=== PATIENT | female | born 1945 | race Caucasian/White ===

== ENCOUNTER 2017-05-14 17:06 | Emergency (ER) | payer MEDICARE ==
[~2017-05-14] VITALS: Ht 160 cm; Wt 70.0 kg
[~2017-05-14 17:06] MED LIST: BENAZEPRIL5 M3 PO; LIPITOR40 M1 PO; MEDDOSEPAK PO; PRILOSEC40 MG PO; TRAZODONE50 MG PO; VENLAFAXINE HCL75 M1 PO; ZETIA10 MG PO; ZITHROMAX250 MG PO
[2017-05-14] MEDS ORDERED: FARXIGA10 MG PO (21:31)
[2017-05-14] MEDS ORDERED: TRULICITY1.5 MG/0.5 SC (21:34)
[2017-05-14] MEDS ORDERED: ZOFRAN ODT4 MG PO (21:39)
[2017-05-14] MEDS ORDERED: ULTRAM50 M1 PO (21:39)
[2017-05-14 21:52] VITALS: BP 150/72
== END 2017-05-14 21:54 | disposition home or self-care (01) ==
LOC: ED 17:06
DX: R10.11 Right upper quadrant pain (principal); R11.0 Nausea; K80.20 Calculus of gallbladder without cholecystitis without obstruction; R10.9 Unspecified abdominal pain; I10 Essential (primary) hypertension; R63.4 Abnormal weight loss; E78.5 Hyperlipidemia, unspecified

== ENCOUNTER → 2018-07-06 | Outpatient (REF) | payer MEDICARE ==
[~2018-07-06] MED LIST changes: +FARXIGA10 MG PO; +TRULICITY1.5 MG/0.5 SC; +ULTRAM50 M1 PO; +ZOFRAN ODT4 MG PO
[2018-07-06 08:50] LABS: ALBUMIN 4.1 g/dL (3.2-5.0); ALKALINE PHOSPHATASE 77 u/l (38-126); ANION GAP 13 (6-22 (CALC)); BILIRUBIN, TOTAL 0.8 mg/dL (0.0-1.4); BUN 16 mg/dL (8-23); BUN/CREATININE RATIO 22 (12-20 (CALC)); CALCULATED LDLCHOLESTEROL 63 mg/dL (62-129 (CALC)); CARBON DIOXIDE 29 mmol/l (22-30); CHLORIDE 102 mmol/l (95-108); CHOLESTEROL HDL RATIO 2.1 (<4.4 (CALC)); CREATININE 0.7 mg/dL (0.5-1.0); GFR > 60 ML/MIN (>=60 (CALC)); GFR FOR AFR.AMER. > 60 ML/MIN (>=60 (CALC)); HDL CHOLESTEROL 72 mg/dL (>=40); POTASSIUM 4.1 mmol/l (3.5-5.1); SGOT/AST 27 u/l (9-36); SODIUM 140 mmol/l (137-146); TOTAL CHOLESTEROL 151 mg/dl (0-199); TOTAL PROTEIN 6.7 g/dL (6.3-8.2); TOTAL TRIGLYCERIDES 78 mg/dl (30-149); VLDL CHOLESTROL 16 mg/dl (0-48 (CALC))
[2018-07-06 09:04] LABS: HEMATOCRIT 40.5 % (37.0-47.0); HEMOGLOBIN 13.4 g/dl (12.0-16.0); IMMATURE GRANULOCYTES 0.2 % (0.0-5.0); MEAN CELL VOLUME 95.1 fL CALC (80.0-100.0); MEAN CORPUSCULAR HGB 31.5 pG CALC (26.0-32.0); MEAN CORPUSCULAR HGB CONC 33.1 g/L CALC (32.0-36.0); NEUT# 2.97 thou/uL (2.00-7.15); RED BLOOD COUNT 4.26 mill/uL (4.20-5.60); RED CELL DISTRI WIDTH 12.3 % (11.5-15.5)
[2018-07-06 09:17] LABS: TSH, 3RD GENERATION 1.84 uIU/mL (0.47 - 4.68)
== END | disposition home or self-care (01) ==
LOC: LAB 08:00
PROVIDERS: ATTEND Family Medicine
DX: E11.9 Type 2 diabetes mellitus without complications (principal); E53.8 Deficiency of other specified B group vitamins; E55.9 Vitamin D deficiency, unspecified; E78.5 Hyperlipidemia, unspecified; I10 Essential (primary) hypertension

== ENCOUNTER 2021-04-04 19:38 | Emergency (ER) | payer MEDICARE ==
[~2021-04-04] VITALS: Ht 160 cm; Wt 59.0 kg
[2021-04-04 20:31] LABS: URINE BILIRUBIN - DIPSTICK NEGATIVE (NEGATIVE); URINE BLOOD DIPSTICK SMALL (NEGATIVE); URINE COLOR YELLOW; URINE GLUCOSE - DIPSTICK NEGATIVE (NEGATIVE); URINE KETONE TRACE mg/dL (NEGATIVE); URINE PROTEIN - DIPSTICK TRACE mg/dL (NEG-TRACE); URINE SPECIFIC GRAVITY >=1.030; URINE UROBILINOGEN - DIPSTICK 0.2 E.U./dL (0.2)
[2021-04-04 20:32] LABS: URINE LEUK ESTERASE SMALL (NEGATIVE); URINE NITRITE - DIPSTICK POSITIVE (Negative)
[2021-04-04 20:40] LABS: URINE BACTERIA MODERATE hpf; URINE SQUAMOUS EPITHELIAL CELL FEW EPI/hpf (0-FEW); URINE WBC 50-100 WBC/hpf (0-5)
[2021-04-04] MEDS ORDERED: CEPHALEXIN500 MG PO (21:05)
[2021-04-04] MEDS ORDERED: PYRIDIUM200 MG PO (21:05)
[2021-04-04 21:55] VITALS: BP 149/70
== END 2021-04-04 21:55 | disposition home or self-care (01) ==
LOC: ED 19:38
PROVIDERS: Emergency Medicine
DX: N39.0 Urinary tract infection, site not specified (principal); B96.20 Unspecified Escherichia coli [E. coli] as the cause of diseases classified elsewhere; E11.9 Type 2 diabetes mellitus without complications; Z79.899 Other long term (current) drug therapy